=== PATIENT | female | born 1990 | race Caucasian/White ===

== ENCOUNTER 2018-02-18 01:22 | Inpatient (IN) | payer MEDICAID ==
[2018-02-18] MEDS: LACTATED RINGER'S 1,000 ML IV ×3 (01:20→17:35)
[2018-02-18] MEDS ORDERED: LIDOCAINE 1% (MPF) 30 ML INJ (01:35)
[2018-02-18] MEDS ORDERED: BUTORPHANOL 2 MG INJ IV (02:00)
[2018-02-18] MEDS ORDERED: CARBOPROST 250 MCG INJ IM ×2 (02:00→02:30)
[2018-02-18] MEDS ORDERED: METHYLERGONOVINE 0.2 MG INJ IM ×2 (02:00→02:30)
[2018-02-18] MEDS ORDERED: OXYTOCIN 30 UNITS/LR 500 ML IV ×3 (02:00→02:30)
[2018-02-18] MEDS ORDERED: MISOPROSTOL 200 MCG TAB PR ×2 (02:00→02:30)
[2018-02-18] MEDS: OXYTOCIN 30 UNITS/LR 500 ML IV ×3 (02:01→02:03)
[2018-02-18 02:09] LABS: ADD MAN DIFF? NO
[2018-02-18 02:11] LABS: WHITE BLOOD COUNT 11.5 10^3/ul (4.8-10.8)
[2018-02-18 02:11] LABS: BASOPHILS % 0.3 % (0.0-2.0); EOSINOPHILS % 0.3 % (0.0-7.0); HEMATOCRIT 35.6 % (37.0-47.0); HEMOGLOBIN 11.4 g/dl (12.0-16.0); LYMPHOCYTES # 1.5 10^3/ul (0.8-2.9); LYMPHOCYTES % 13.1 % (15.0-51.0); MEAN CORPUSCULAR HEMOGLOBIN 26.6 pg (29.0-33.0); MEAN PLATELET VOLUME 11.3 fl (7.4-10.4); MONOCYTE # 0.5 10^3/ul (0.3-0.9); MONOCYTES % 4.6 % (0.0-11.0); NEUTROPHIL # 9.3 10^3/ul (1.6-7.5); NEUTROPHILS % 81.2 % (39.0-77.0); PLATELET COUNT 234 10^3/UL (140-415); RED BLOOD COUNT 4.29 10^6/ul (4.20-5.40); RED CELL DISTRIBUTION WIDTH 15.6 % (11.5-14.5)
[2018-02-18] MEDS ORDERED: IBUPROFEN 600 MG TAB PO (02:30)
[2018-02-18] MEDS ORDERED: SENNA/DOCUSATE NA (8.6MG/50MG) TAB PO (02:30)
[2018-02-18] MEDS ORDERED: MAGNESIUM HYDROXIDE 30ML CUP PO (02:30)
[2018-02-18] MEDS ORDERED: ONDANSETRON 4 MG INJ IV (02:30)
[2018-02-18] MEDS ORDERED: ACETAMINOPHEN 325 MG TAB PO ×2 (02:30)
[2018-02-18] MEDS ORDERED: DIBUCAINE 1% 30 GM OINT PR (02:30)
[2018-02-18] MEDS ORDERED: LANOLIN 7 GM TUBE TOP (02:30)
[2018-02-18 02:32] LABS: INR 0.93; PROTIME 12.5 Sec (11.9-14.9)
[2018-02-18] MEDS: LIDOCAINE 1% (MPF) 30 ML INJ INJ (02:34)
[2018-02-18 04:32] LABS: HEPATITIS B SURFACE ANTIGEN NEGATIVE (NEGATIVE)
[2018-02-18 04:46] LABS: HIV 1&2 ANTIBODY NEGATIVE (NEGATIVE)
[2018-02-18] MEDS: BENZOCAINE 20% 56 ML SPRAY TOP (05:32)
[2018-02-18] MEDS: WITCH HAZEL/GLYCERIN PAD PR (05:32)
[2018-02-18] MEDS: IBUPROFEN 600 MG TAB PO (05:32)
[2018-02-18] MEDS: LACTATED RINGER'S 1,000 ML IV* ×3 (05:33→18:01)
[2018-02-18 21:46] LABS: RAPID PLASMA REAGIN NONREACTIVE (NR)
[2018-02-19] MEDS: LACTATED RINGER'S 1,000 ML IV (01:35)
[2018-02-19] MEDS: LACTATED RINGER'S 1,000 ML IV* (02:00)
[2018-02-19 08:42] LABS: ADD MAN DIFF? NO
[2018-02-19 08:46] LABS: WHITE BLOOD COUNT 10.6 10^3/ul (4.8-10.8)
[2018-02-19 08:46] LABS: BASOPHILS % 0.4 % (0.0-2.0); EOSINOPHILS # 0.2 10^3/ul (0.0-0.5); EOSINOPHILS % 1.5 % (0.0-7.0); HEMATOCRIT 34.4 % (37.0-47.0); LYMPHOCYTES # 3.1 10^3/ul (0.8-2.9); LYMPHOCYTES % 28.9 % (15.0-51.0); MEAN CORPUSCULAR HEMOGLOBIN 26.6 pg (29.0-33.0); MEAN CORPUSCULAR VOLUME 83.1 fl (82.0-101.0); MONOCYTE # 0.7 10^3/ul (0.3-0.9); MONOCYTES % 6.6 % (0.0-11.0); NEUTROPHIL # 6.6 10^3/ul (1.6-7.5); NEUTROPHILS % 62.1 % (39.0-77.0); PLATELET COUNT 214 10^3/UL (140-415); RED BLOOD COUNT 4.14 10^6/ul (4.20-5.40)
[2018-02-21 13:03] LABS: RUBELLA ANTIBODY - IGG 8.78 index; RUBELLA ANTIBODY - IGM <20.00 AU/mL
== END 2018-02-20 14:10 | disposition home or self-care (01) | DRG 775 ==
LOC: OBT 01:22 → L-D 01:23 → PP1 03:10
PROVIDERS: Specialist
PROC: 0HQ9XZZ Repair Perineum Skin, External Approach (ICD-10-PCS; principal; 2018-02-18)
DX: Z39.0 Encounter for care and examination of mother immediately after delivery (principal); O70.0 First degree perineal laceration during delivery; Z37.0 Single live birth; Z3A.37 37 weeks gestation of pregnancy
CPT/HCPCS: 85025; 85610; 85730; 86592; 86703; 86762; 86850; 86900; 86901; 87340